=== PATIENT | male | born 1995 | race Two or more races ===

== ENCOUNTER 2024-12-22 15:28 | Emergency (ER) | payer OTHER ==
[2024-12-22 16:09] VITALS: TEMP 99.4; BMI 25.2
[2024-12-22] MEDS: METOCLOPRAMIDE HCL 10 MG TABLET (FP) PO ONE (17:15)
[2024-12-22] MEDS ORDERED: METOCLOPRAMIDE HCL INJECTION 10 MG/2 ML VIAL ONE (17:20)
[2024-12-22] MEDS ORDERED: ACETAMINOPHEN 325 MG TABLET (FP) ONE (17:20)
[2024-12-22] MEDS: ACETAMINOPHEN 500 MG TABLET (FP) PO ONE (17:25)
[2024-12-22] MEDS: METOCLOPRAMIDE HCL INJECTION 10 MG/2 ML VIAL IVPB ONE (17:35)
[2024-12-22 18:08] VITALS: BP 131/82; PULSE 80; RESP 20
== END 2024-12-22 19:00 | disposition left against medical advice (07) ==
LOC: JER 15:28
PROC: 3E033GC Introduction of Other Therapeutic Substance into Peripheral Vein, Percutaneous Approach (ICD-10-PCS; principal; 2024-12-22)
DX: S02.5XXA Fracture of tooth (traumatic), initial encounter for closed fracture (principal); R41.0 Disorientation, unspecified; F07.81 Postconcussional syndrome; V00.131A Fall from skateboard, initial encounter
CPT/HCPCS: 70450-TC; 82962; 93005; 93010; 99285-25